=== PATIENT | female | born 1985 | race Caucasian/White ===

== ENCOUNTER 2019-02-24 10:36 | Emergency (ER) | payer OTHER ==
[~2019-02-24] VITALS: Ht 162.6 cm; Wt 77.1 kg
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
[2019-02-24 13:23] VITALS: BP 119/83
== END 2019-02-24 13:25 | disposition home or self-care (01) ==
LOC: ER 10:36
DX: M54.6 Pain in thoracic spine (principal); M54.5 Low back pain; R07.89 Other chest pain; V40.5XXA Car driver injured in collision with pedestrian or animal in traffic accident, initial encounter; Y93.89 Activity, other specified; Y92.410 Unspecified street and highway as the place of occurrence of the external cause; Y99.8 Other external cause status
CPT/HCPCS: 71045; 72072; 72100; 81025; 99284-25